=== PATIENT | female | born 2000 | race Caucasian/White ===

== ENCOUNTER 2022-01-26 14:54 | Outpatient (REF) | payer MEDICAID, SELFPAY ==
[2022-01-26 21:54] LABS: Abs Immature Grans 0.01 10^3/uL (0.0-0.06); Absolute Basophil Count 0.03 10^3/uL (0.0-0.2); Absolute Eosinophil Count 0.07 10^3/uL (0.0-0.7); Absolute Lymphocyte Count 0.97 10^3/uL (1.2-3.4); Absolute Neutrophil Count 5.61 10^3/uL (1.2-6.7); Basophils % 0.4; HCT 44.6 % (36.0-46.0); Immature Grans % 0.1; Lymphocytes % 13.5; MCH 30.9 pg (27.0-33.0); MCHC 33.6 % (32.0-36.0); MCV 92 fL (80-95); MPV 9.6 fL (8.0-11.0); Platelet Count 326 10^3/uL (130-400); RBC 4.86 10^6/uL (3.93-5.22); RDW 11.7 % (11.7-14.6); RDW-SD 39.8 fL; WBC 7.19 10^3/uL (4.4-10.8)
[2022-01-26 22:20] LABS: Bacteria Few HPF (Negative); C & S Indicated? C&S Done As Ordered; Casts Negative LPF (Negative); Crystals Negative HPF (Negative); Epithelial Cells Few HPF (Negative); Mucus Negative (Negative); RBC Negative HPF (0-2); WBC Negative HPF (0-5)
[2022-01-26 22:26] LABS: HCG Qual (Urine) Negative
== END 2022-01-26 14:55 | disposition home or self-care (01) ==
LOC: LBN 14:54
PROVIDERS: Visit Provider Physician Assistant Medical
DX: R10.30 Lower abdominal pain, unspecified (principal); R82.998 Other abnormal findings in urine
CPT/HCPCS: 80053; U0003; 81015; 81025; 85025; 87086

== ENCOUNTER → 2022-01-29 02:21 | Outpatient (CLI) | payer MEDICAID, SELFPAY ==
--- NOTE | 2022-01-29 | DI.US_ITS ---
Exam(s) US PELVIS TRANSVAGINAL EXAM: US PELVIS TRANSVAGINAL CLINICAL HISTORY: LOW ABD PAIN, R10.30 TECHNIQUE: Ultrasound of the pelvis was performed both transabdominal and transvaginal. COMPARISON: No exams were available for comparison FINDINGS: UTERUS: Measures 5.5 cm length x 3.5 cm AP x 5.6 cm wide. There are no uterine fibroids. Endometrial thickness measures 6.6 mm. Small amount of clear fluid noted within the endocervical canal. CERVIX: There are no obvious nabothian cysts. RIGHT OVARY: Measures 2.6 x 1.6 x 1.2 cm cm Contains follicular cysts measuring less than 1 cm. Normal blood flow. LEFT OVARY: Measures 2.8 x 2.0 x 2.5 cm cm Contains follicular cysts measuring less than 1 cm.. Normal blood flow. CUL-DE-SAC: No extraovarian adnexal masses and no free fluid in the cul-de-sac. IMPRESSION: 1. Uterus appears unremarkable. There is, however, some small amount of fluid in the lower uterine s egment and endocervical canal. This fluid appears clear. 2. Bilateral follicular cysts in both ovaries. No solid ovarian masses. No extraovarian adnexal mas ses. 3. No free fluid evident in the adnexal regions and cul-de-sac. DATA REPOSITORY:
== END ==
PROVIDERS: Visit Provider Physician Assistant Medical
DX: N83.202 Unspecified ovarian cyst, left side (principal); N83.201 Unspecified ovarian cyst, right side
CPT/HCPCS: 76830; 76856

== ENCOUNTER 2022-01-30 15:05 | Outpatient (REF) | payer MEDICAID, SELFPAY ==
[2022-02-01 11:51] LABS: COVID-19 RT-PCR UVMMC Result Positive (Negative)
== END 2022-01-30 15:06 | disposition home or self-care (01) ==
LOC: LBN 15:05
PROVIDERS: Visit Provider Physician Assistant Medical
DX: Z20.822 Contact with and (suspected) exposure to COVID-19 (principal); R10.30 Lower abdominal pain, unspecified
CPT/HCPCS: U0003